=== PATIENT | female | born 2005 | race Caucasian/White ===

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

== ENCOUNTER 2023-01-13 22:39 | Emergency (ER) | payer BC ==
[2023-01-13] MEDS ORDERED: Morphine 4 MG/ML Syringe IVPUSH ONE (23:01)
[2023-01-13] MEDS ORDERED: Sodium Chloride 0.9% 10 ML Syringe FLUSH PRN (23:01)
[2023-01-13] MEDS ORDERED: Ondansetron 4 MG/2 ML SDV IVPUSH ONE (23:01)
[2023-01-13] MEDS ORDERED: Sodium Chloride 0.9% 2.5 ML Syringe FLUSH PRN (23:01)
[2023-01-13 23:12] LABS: APPEARANCE,URINE CLEAR; BILIRUBIN,URINE NEGATIVE (NEGATIVE); COLOR,URINE YELLOW; GLUCOSE,URINE NEGATIVE (NEGATIVE); KETONES,URINE NEGATIVE (NEGATIVE); LEUKOCYTE ESTERASE,URINE NEGATIVE (NEGATIVE); NITRITE,URINE NEGATIVE (NEGATIVE); OCCULT BLOOD,URINE NEGATIVE (NEGATIVE); PH,URINE 6.5 (5.0-8.0); PROTEIN,URINE NEGATIVE (NEGATIVE)
[2023-01-13 23:33] LABS: BASOPHILS ABSOLUTE AUTO 0.06 K/uL (0.00-0.30); BASOPHILS PERCENT AUTO 0.6 % (0.0-1.0); EOSINOPHILS ABSOLUTE AUTO 0.75 K/uL (0.00-0.70); EOSINOPHILS PERCENT AUTO 7.7 % (0.0-5.0); HEMATOCRIT 40.1 % (37.0-47.0); HEMOGLOBIN 13.9 g/dL (12.0-16.0); IMMATURE GRAN ABSOLUTE AUTO 0.02 K/uL (0.00-0.05); IMMATURE GRAN PERCENT AUTO 0.2 % (0.0-0.4); LYMPHOCYTES ABSOLUTE AUTO 2.13 K/uL (2.00-8.80); MEAN CORPUSCULAR HEMOGLOBIN 31.1 pg (28.0-32.0); MEAN CORPUSCULAR HGB CONC 34.7 g/dL (32.0-36.0); MEAN CORPUSCULAR VOLUME 89.7 fL (83.0-99.0); MEAN PLATELET VOLUME 9.7 fL (9.4-12.3); MONOCYTES ABSOLUTE AUTO 0.76 K/uL (0.10-1.40); MONOCYTES PERCENT AUTO 7.8 % (2.0-10.0); NEUTROPHILS ABSOLUTE AUTO 5.98 K/uL (1.50-8.50); NEUTROPHILS PERCENT AUTO 61.7 % (35.0-45.0); PLATELET COUNT,PLT 330 K/uL (150-400); RED BLOOD CELL COUNT 4.47 M/uL (4.10-5.30)
[2023-01-13 23:55] LABS: ALBUMIN 4.1 g/dL (3.4-5.0); BILIRUBIN TOTAL 0.5 mg/dL (0.2-1.0); CALCIUM 9.2 mg/dL (8.5-10.1); CREATININE 0.8 mg/dL (0.6-1.0); EST CRCL DRUG DOSING (CG) 101.78 mL/min; PROTEIN TOTAL,TP 8.1 g/dL (6.4-8.2)
[2023-01-14] MEDS ORDERED: Dicyclomine 10 MG Cap PO ONE (00:45)
[2023-01-14] MEDS ORDERED: Morphine 2 MG/ML SYRINGE IVPUSH ONE (00:45)
[2023-01-14] MEDS ORDERED: Ketorolac 30 MG/ML SDV IVPUSH ONE (00:48)
== END 2023-01-14 01:32 | disposition home or self-care (01) ==
LOC: MW.ED 22:39
DX: K80.70 Calculus of gallbladder and bile duct without cholecystitis without obstruction (principal); Z79.899 Other long term (current) drug therapy
CPT/HCPCS: 36415; 76705; 80053; 81003; 81025; 83690; 85025; 96374; 96375; 96376; 99284; A9270; J1885; J2270; J2405; J3490

== ENCOUNTER 2023-01-17 09:48 | Day surgery (SDC) | payer BC ==
[~2023-01-17 09:48] MED LIST: Albuterol 0.083% 2.5 MG/3 ML Neb Soln NEB PRN; HYDROmorphone 1 MG/ML Syringe IVPUSH PRN; Lactated Ringers 1,000 ML IV SCH; Metoclopramide 10 MG/2 ML SDV IVPUSH PRN; Morphine 2 MG/ML SYRINGE IVPUSH PRN; Naloxone 0.4 MG/ML SDV IVPUSH PRN; Ondansetron 4 MG/2 ML SDV IVPUSH PRN; cefOXitin 2 GM in Sodium Chloride 0.9% 100 ML IV ONE; droPERidol 5 MG/2 ML SDV IVPUSH PRN; fentaNYL 50 MCG/ML SDV IVPUSH PRN
[2023-01-17] MEDS ORDERED: cefOXitin 2 GM Vial IV ONE (09:49)
[2023-01-17] MEDS ORDERED: Indocyanine Green 25 MG SDV INJECT ONE (09:49)
[2023-01-17] MEDS ORDERED: Scopolamine 1.5 MG Transdermal Patch TOP ONE (10:00)
[2023-01-17] MEDS ORDERED: Ropivacaine 0.5% 5 MG/ML 30 ML SDV ONE (10:44)
[2023-01-17] MEDS ORDERED: Bupivacaine 0.5%/EPINEPHrine 1:200,000 30 ML SDV ONE (10:44)
[2023-01-17] MEDS ORDERED: Bupivacaine 0.5% 10 ML SDV ONE (11:05)
[2023-01-17] MEDS ORDERED: ceFAZolin 1 GM Vial ONE (11:06)
[2023-01-17] MEDS ORDERED: Rocuronium Bromide 50 MG/5 ML Syringe ONE (11:07)
[2023-01-17] MEDS ORDERED: fentaNYL 100 MCG/2 ML SDV ONE ×2 (11:07→11:45)
[2023-01-17] MEDS ORDERED: Sugammadex Sodium 200 MG/2 ML VIAL ONE (11:07)
[2023-01-17] MEDS ORDERED: Propofol 200 MG/20 ML SDV ONE (11:07)
[2023-01-17] MEDS ORDERED: Dexamethasone 4 MG/ML 5 ML MDV ONE (11:07)
[2023-01-17] MEDS ORDERED: Ondansetron 4 MG/2 ML SDV ONE (11:07)
[2023-01-17] MEDS ORDERED: Lidocaine 2% 5 ML SDV ONE (11:07)
[2023-01-17] MEDS ORDERED: Ketorolac 30 MG/ML SDV ONE (11:07)
[2023-01-17] MEDS ORDERED: Morphine 2 MG/ML SYRINGE IVPUSH PRN (13:20)
[2023-01-17] MEDS ORDERED: Acetaminophen/HYDROcodone 325-5 MG Tab PO PRN ×2 (13:20→13:43)
[2023-01-17] MEDS ORDERED: Lactated Ringers 1,000 ML IV SCH (13:30)
== END 2023-01-17 16:40 ==
LOC: MW.SDS 09:48 → MW.MS 14:23 → MW.SDS 16:40
PROVIDERS: ATTEND Surgery
DX: K80.10 Calculus of gallbladder with chronic cholecystitis without obstruction (principal); E84.9 Cystic fibrosis, unspecified; K90.49 Malabsorption due to intolerance, not elsewhere classified; F90.9 Attention-deficit hyperactivity disorder, unspecified type; F41.9 Anxiety disorder, unspecified; F17.290 Nicotine dependence, other tobacco product, uncomplicated; Z79.899 Other long term (current) drug therapy
CPT/HCPCS: 36415; 47563; 64488; 84703; A9270; J0131; J0690; J0694; J1885; J2270; J2405; J2704; J2795; J3010; J3490; J7120; S0020; J1100

== ENCOUNTER 2023-03-12 04:35 | Emergency (ER) | payer BC ==
[2023-03-12 05:11] LABS: APPEARANCE,URINE CLEAR; BILIRUBIN,URINE NEGATIVE (NEGATIVE); COLOR,URINE YELLOW; GLUCOSE,URINE NEGATIVE (NEGATIVE); KETONES,URINE NEGATIVE (NEGATIVE); LEUKOCYTE ESTERASE,URINE NEGATIVE (NEGATIVE); NITRITE,URINE NEGATIVE (NEGATIVE); OCCULT BLOOD,URINE TRACE-INTACT (NEGATIVE); PH,URINE 6.5 (5.0-8.0); PROTEIN,URINE NEGATIVE (NEGATIVE); UROBILINOGEN,URINE 0.2 EU/dL (<2.0)
[2023-03-12 05:23] LABS: BACTERIA,URINE NOT SEEN (NEGATIVE); EPITHELIAL CELLS,URINE MODERATE (NONE-FEW); RBC,URINE 15-20 (0-2/HPF)
== END 2023-03-12 05:40 | disposition home or self-care (01) ==
LOC: MW.ED 04:35
DX: R30.0 Dysuria (principal)
CPT/HCPCS: 81001; 99283; 99284

== ENCOUNTER 2023-07-04 16:08 | Emergency (ER) | payer BC ==
[2023-07-04 16:20] LABS: APPEARANCE,URINE CLOUDY; COLOR,URINE ORANGE; GLUCOSE,URINE NEGATIVE (NEGATIVE); KETONES,URINE TRACE mg/dL (NEGATIVE); LEUKOCYTE ESTERASE,URINE MODERATE (NEGATIVE); NITRITE,URINE POSITIVE (NEGATIVE); OCCULT BLOOD,URINE LARGE (NEGATIVE); PH,URINE 5.5 (5.0-8.0); PROTEIN,URINE 100 mg/dL (NEGATIVE)
[2023-07-04 16:23] LABS: BILIRUBIN,URINE MODERATE (NEGATIVE)
[2023-07-04 16:31] LABS: BACTERIA,URINE FEW (NEGATIVE); EPITHELIAL CELLS,URINE MODERATE (NONE-FEW); MUCUS,URINE LIGHT (NONE-MOD); RBC,URINE 50-60 (0-2/HPF); WBC,URINE 40-50 (0-5/HPF)
[2023-07-04] MEDS: Acetaminophen 500 MG Tab PO ONE (16:44)
== END 2023-07-04 17:00 | disposition home or self-care (01) ==
LOC: MW.ED 16:08
DX: N39.0 Urinary tract infection, site not specified (principal); Z79.899 Other long term (current) drug therapy; Z75.8 Other problems related to medical facilities and other health care
CPT/HCPCS: 81001; 81003; 87086; 99283; A9270

== ENCOUNTER 2023-07-16 15:30 | Emergency (ER) | payer BC ==
[2023-07-16 16:58] LABS: APPEARANCE,URINE CLOUDY; BILIRUBIN,URINE NEGATIVE (NEGATIVE); COLOR,URINE YELLOW; GLUCOSE,URINE NEGATIVE (NEGATIVE); KETONES,URINE NEGATIVE (NEGATIVE); LEUKOCYTE ESTERASE,URINE SMALL (NEGATIVE); NITRITE,URINE POSITIVE (NEGATIVE); OCCULT BLOOD,URINE LARGE (NEGATIVE); PH,URINE 6.5 (5.0-8.0); PROTEIN,URINE 100 mg/dL (NEGATIVE)
[2023-07-16] MEDS: Lidocaine 1% PF 2 ML SDV INJECT ONE (17:15)
[2023-07-16] MEDS: Phenazopyridine 200 MG Tab PO ONE (17:15)
[2023-07-16] MEDS: cefTRIAXone 1 GM Vial IM ONE (17:15)
[2023-07-16 17:19] LABS: BACTERIA,URINE MODERATE (NEGATIVE); EPITHELIAL CELLS,URINE FEW (NONE-FEW); RBC,URINE TOO NUMEROUS TO CT (0-2/HPF); WBC,URINE 25-30 (0-5/HPF)
== END 2023-07-16 17:37 | disposition home or self-care (01) ==
LOC: MW.ED 15:30
DX: N39.0 Urinary tract infection, site not specified (principal); Z75.8 Other problems related to medical facilities and other health care; Z79.899 Other long term (current) drug therapy
CPT/HCPCS: 81001; 81003; 87086; 96372; 99284; A9270; J0696; 99283; J3490

== ENCOUNTER 2023-09-25 17:37 | Emergency (ER) | payer BC ==
[2023-09-25] MEDS: Ampicillin/Sulbactam Na 3 GM in Sodium Chloride 0.9% 100 ML IV ONE (18:31)
[2023-09-25 18:50] LABS: BASOPHILS ABSOLUTE AUTO 0.05 K/uL (0.00-0.20); BASOPHILS PERCENT AUTO 0.5 % (0.0-1.0); EOSINOPHILS ABSOLUTE AUTO 0.41 K/uL (0.00-0.45); EOSINOPHILS PERCENT AUTO 4.2 % (0.0-6.0); HEMATOCRIT 36.3 % (37.0-47.0); HEMOGLOBIN 12.2 g/dL (12.0-16.0); IMMATURE GRAN ABSOLUTE AUTO 0.03 K/uL (0.00-0.05); IMMATURE GRAN PERCENT AUTO 0.3 % (0.0-0.4); LYMPHOCYTES ABSOLUTE AUTO 1.28 K/uL (1.00-4.80); LYMPHOCYTES PERCENT AUTO 13.1 % (24.0-44.0); MEAN CORPUSCULAR HGB CONC 33.6 g/dL (32.0-36.0); MEAN CORPUSCULAR VOLUME 89.4 fL (83.0-99.0); MEAN PLATELET VOLUME 9.5 fL (9.4-12.3); MONOCYTES ABSOLUTE AUTO 0.74 K/uL (0.00-0.80); MONOCYTES PERCENT AUTO 7.6 % (0.0-8.0); NEUTROPHILS ABSOLUTE AUTO 7.26 K/uL (1.80-7.70); NEUTROPHILS PERCENT AUTO 74.3 % (41.0-71.0); PLATELET COUNT,PLT 334 K/uL (150-400); RED BLOOD CELL COUNT 4.06 M/uL (4.10-5.30); WHITE BLOOD CELL COUNT,WBC 9.77 K/uL (3.9-11.3)
[2023-09-25] MEDS: Sodium Chloride 0.9% 2.5 ML Syringe FLUSH PRN (18:52)
[2023-09-25] MEDS: Sodium Chloride 0.9% 10 ML Syringe FLUSH PRN (18:52)
[2023-09-25 19:09] LABS: CALCIUM 9.1 mg/dL (8.5-10.1); CARBON DIOXIDE,CO2 27.4 mmol/L (21.0-32.0); CREATININE 0.7 mg/dL (0.6-1.0); EST CRCL DRUG DOSING (CG) 115.36 mL/min; POTASSIUM,K 3.7 mmol/L (3.5-5.1)
== END 2023-09-25 19:26 | disposition home or self-care (01) ==
LOC: MW.ED 17:37
DX: K04.7 Periapical abscess without sinus (principal)
CPT/HCPCS: 36415; 80048; 85025; 96365; 99283; J0295; J3490

== ENCOUNTER 2023-09-26 20:42 | Emergency (ER) | payer BC ==
[2023-09-26] MEDS: Ketorolac 30 MG/ML SDV IVPUSH ONE (21:20)
[2023-09-26 21:28] LABS: BASOPHILS ABSOLUTE AUTO 0.04 K/uL (0.00-0.20); BASOPHILS PERCENT AUTO 0.3 % (0.0-1.0); EOSINOPHILS ABSOLUTE AUTO 0.48 K/uL (0.00-0.45); HEMATOCRIT 35.6 % (37.0-47.0); HEMOGLOBIN 11.9 g/dL (12.0-16.0); IMMATURE GRAN ABSOLUTE AUTO 0.03 K/uL (0.00-0.05); IMMATURE GRAN PERCENT AUTO 0.2 % (0.0-0.4); LYMPHOCYTES ABSOLUTE AUTO 1.36 K/uL (1.00-4.80); LYMPHOCYTES PERCENT AUTO 11.2 % (24.0-44.0); MEAN CORPUSCULAR HEMOGLOBIN 29.7 pg (28.0-32.0); MEAN CORPUSCULAR HGB CONC 33.4 g/dL (32.0-36.0); MEAN CORPUSCULAR VOLUME 88.8 fL (83.0-99.0); MEAN PLATELET VOLUME 9.5 fL (9.4-12.3); MONOCYTES ABSOLUTE AUTO 1.04 K/uL (0.00-0.80); MONOCYTES PERCENT AUTO 8.6 % (0.0-8.0); NEUTROPHILS ABSOLUTE AUTO 9.17 K/uL (1.80-7.70); NEUTROPHILS PERCENT AUTO 75.7 % (41.0-71.0); PLATELET COUNT,PLT 339 K/uL (150-400); RED BLOOD CELL COUNT 4.01 M/uL (4.10-5.30); WHITE BLOOD CELL COUNT,WBC 12.12 K/uL (3.9-11.3)
[2023-09-26 21:45] LABS: CALCIUM 8.7 mg/dL (8.5-10.1); CARBON DIOXIDE,CO2 25.5 mmol/L (21.0-32.0); CREATININE 0.7 mg/dL (0.6-1.0); EST CRCL DRUG DOSING (CG) 115.36 mL/min; POTASSIUM,K 3.8 mmol/L (3.5-5.1)
[2023-09-26] MEDS: Ampicillin/Sulbactam Na 3 GM in Sodium Chloride 0.9% 100 ML IV STA (21:54)
[2023-09-26] MEDS: Iopamidol 755 MG/ML 500 ML Multipack Bottle IVPUSH STA (22:48)
[2023-09-26] MEDS: Sodium Chloride 0.9% 1,000 ML IV SCH (23:46)
== END 2023-09-27 03:30 ==
LOC: MW.ED 20:42
DX: K12.2 Cellulitis and abscess of mouth (principal); K04.7 Periapical abscess without sinus; R13.10 Dysphagia, unspecified; Z79.899 Other long term (current) drug therapy
CPT/HCPCS: 36415; 70491; 80048; 85025; 96365; 96375; 99285; J0295; J1100; J1885; J3490; J7030; Q9967

== ENCOUNTER 2023-10-14 15:58 | Emergency (ER) | payer BC | END 2023-10-14 18:03 | disposition home or self-care (01) | LOC: MW.ED 15:58 | DX: Z48.814 Encounter for surgical aftercare following surgery on the teeth or oral cavity (principal); F17.210 Nicotine dependence, cigarettes, uncomplicated; Z79.899 Other long term (current) drug therapy; Z90.49 Acquired absence of other specified parts of digestive tract | CPT/HCPCS: 99281; 99282 ==

== ENCOUNTER 2023-12-31 19:21 | Emergency (ER) | payer BC ==
[2023-12-31 19:48] LABS: APPEARANCE,URINE CLEAR; BILIRUBIN,URINE NEGATIVE (NEGATIVE); COLOR,URINE YELLOW; GLUCOSE,URINE NEGATIVE (NEGATIVE); KETONES,URINE TRACE mg/dL (NEGATIVE); LEUKOCYTE ESTERASE,URINE TRACE (NEGATIVE); NITRITE,URINE NEGATIVE (NEGATIVE); OCCULT BLOOD,URINE TRACE-INTACT (NEGATIVE); PROTEIN,URINE 30 mg/dL (NEGATIVE); UROBILINOGEN,URINE 0.2 EU/dL (<2.0)
[2023-12-31 20:05] LABS: BACTERIA,URINE FEW (NEGATIVE); EPITHELIAL CELLS,URINE FEW (NONE-FEW); WBC,URINE 15-20 (0-5/HPF)
[2023-12-31] MEDS: Nitrofurantoin Monohydrate/Macrocrystalline 100 MG Cap PO ONE (20:11)
== END 2023-12-31 20:33 | disposition home or self-care (01) ==
LOC: MW.ED 19:21
DX: N39.0 Urinary tract infection, site not specified (principal); Z79.899 Other long term (current) drug therapy; Z75.8 Other problems related to medical facilities and other health care
CPT/HCPCS: 81001; 81025; 99284; A9270

== ENCOUNTER 2024-01-26 17:41 | Emergency (ER) | payer BC ==
[2024-01-26] MEDS: Lidocaine 2% Viscous Solution 15 ML UD PO ONE (20:30)
[2024-01-26] MEDS: Benzocaine 20% Topical Spray UD MUCMEM ONE (20:30)
[2024-01-26] MEDS: Amoxicillin/Clavulanate K 875-125 MG Tab PO ONE (20:31)
== END 2024-01-26 21:06 | disposition home or self-care (01) ==
LOC: MW.ED 17:41
DX: S02.5XXA Fracture of tooth (traumatic), initial encounter for closed fracture (principal); Z75.8 Other problems related to medical facilities and other health care; Z79.899 Other long term (current) drug therapy; Z90.49 Acquired absence of other specified parts of digestive tract; X58.XXXA Exposure to other specified factors, initial encounter
CPT/HCPCS: 81025; 99283; A9270

== ENCOUNTER 2024-02-22 22:44 | Emergency (ER) | payer BC ==
[2024-02-22 23:19] LABS: GLUCOSE,URINE NEGATIVE (NEGATIVE); KETONES,URINE TRACE mg/dL (NEGATIVE); LEUKOCYTE ESTERASE,URINE MODERATE (NEGATIVE); NITRITE,URINE POSITIVE (NEGATIVE); OCCULT BLOOD,URINE LARGE (NEGATIVE); PH,URINE 6.5 (5.0-8.0); PROTEIN,URINE 100 mg/dL (NEGATIVE)
[2024-02-22 23:30] LABS: APPEARANCE,URINE CLOUDY; BACTERIA,URINE FEW (NEGATIVE); BILIRUBIN,URINE SMALL (NEGATIVE); COLOR,URINE DARK YELLOW; EPITHELIAL CELLS,URINE FEW (NONE-FEW); MUCUS,URINE FEW (NONE-MOD); WBC,URINE TOO NUMEROUS TO CT (0-5/HPF)
[2024-02-22] MEDS: Nitrofurantoin Monohydrate/Macrocrystalline 100 MG Cap PO ONE (23:51)
[2024-02-22] MEDS: Phenazopyridine 200 MG Tab PO ONE (23:51)
== END 2024-02-22 23:51 | disposition home or self-care (01) ==
LOC: MW.ED 22:44
DX: N39.0 Urinary tract infection, site not specified (principal); Z90.49 Acquired absence of other specified parts of digestive tract; F17.210 Nicotine dependence, cigarettes, uncomplicated
CPT/HCPCS: 81001; 99283; A9270

== ENCOUNTER 2024-03-20 18:00 | Emergency (ER) | payer BC | END 2024-03-20 20:12 | disposition home or self-care (01) | LOC: MW.ED 18:00 | DX: R51.9 Headache, unspecified (principal); T38.0X5A Adverse effect of glucocorticoids and synthetic analogues, initial encounter; Z75.8 Other problems related to medical facilities and other health care; Z79.899 Other long term (current) drug therapy; Z90.49 Acquired absence of other specified parts of digestive tract | CPT/HCPCS: 99283 ==

== ENCOUNTER 2024-05-02 15:19 | Emergency (ER) | payer BC ==
[2024-05-02] MEDS: Benzocaine 20% Topical Spray UD MUCMEM ONE (16:10)
[2024-05-02] MEDS: Lidocaine 2% Viscous Solution 15 ML UD PO ONE (16:10)
== END 2024-05-02 16:15 | disposition home or self-care (01) ==
LOC: MW.ED 15:19
DX: S02.5XXA Fracture of tooth (traumatic), initial encounter for closed fracture (principal); Z90.49 Acquired absence of other specified parts of digestive tract; Z79.899 Other long term (current) drug therapy; Z75.8 Other problems related to medical facilities and other health care; X58.XXXA Exposure to other specified factors, initial encounter
CPT/HCPCS: 99282; A9270

== ENCOUNTER 2024-09-23 18:53 | Emergency (ER) | payer BC ==
[2024-09-23 19:40] LABS: APPEARANCE,URINE SLT CLOUDY; GLUCOSE,URINE NEGATIVE (NEGATIVE); OCCULT BLOOD,URINE MODERATE (NEGATIVE)
[2024-09-23 19:51] LABS: EPITHELIAL CELLS,URINE FEW (NONE-FEW)
== END 2024-09-23 20:04 | disposition home or self-care (01) ==
LOC: MW.ED 18:53
DX: N39.0 Urinary tract infection, site not specified (principal); Z90.49 Acquired absence of other specified parts of digestive tract; Z79.899 Other long term (current) drug therapy; Z75.3 Unavailability and inaccessibility of health-care facilities
CPT/HCPCS: 81001; 81025; 87086; 99283

== ENCOUNTER 2025-02-01 10:40 | Emergency (ER) | payer BC ==
[2025-02-01] MEDS: Ketorolac 60 MG/2 ML SDV IM ONE (12:05)
== END 2025-02-01 12:09 | disposition home or self-care (01) ==
LOC: MW.ED 10:40
DX: K04.7 Periapical abscess without sinus (principal)
CPT/HCPCS: 96372; 99283; A9270; J1885